=== PATIENT | female | born 1970 | race Caucasian/White ===

== ENCOUNTER 2021-09-26 20:34 | Observation (INO) ==
[2021-09-26] MEDS ORDERED: ONDANSETRON INJ 2 MG/ML 2 ML VIAL IV STA (20:39)
[2021-09-26] MEDS ORDERED: KETOROLAC TROMETHAMINE 15 MG/ML VIAL IV STA (20:39)
[2021-09-26 21:13] LABS: Basophils # (auto) 0.01 K/uL (0-0.2); Basophils % (auto) 0.1 %; Hematocrit (blood only) 36.3 % (37-47); Hemoglobin 12.5 g/dL (12.0-16.0); Immature Granulocytes # (auto) 0.01 K/uL (0.00-0.02); Immature Granulocytes % (auto) 0.1 %; Lymphocytes # (auto) 0.54 K/uL (1.2-3.4); Lymphocytes % (auto) 4.9 %; Mean Corpuscular Hemoglobin 32.5 pg (25-34); Mean Corpuscular Hgb Conc 34.4 g/dL (32-36); Mean Corpuscular Volume 94.3 fL (80-100); Mean Platelet Volume 8.9 fL (7.4-10.4); Monocytes # (auto) 0.86 K/uL (0.11-0.59); Monocytes % (auto) 7.8 %; Neutrophils # (auto) 9.57 K/uL (1.4-6.5); Neutrophils % (auto) 87.1 %; Platelet Count 275 K/uL (130-400); RDW Coefficient of Variation 12.9 % (11.5-14.5); RDW Standard Deviation 44.6 fL (36.4-46.3); Red Blood Count 3.85 M/uL (4.2-5.4); White Blood Count 10.99 K/uL (4.8-10.8)
[2021-09-26 21:35] LABS: Alanine Aminotransferase 9 U/L (7-52); Albumin Globulin Ratio 1.6 (0.9-2); Albumin Level 4.6 gm/dl (3.4-5.0); Alkaline Phosphatase 42 U/L (34-104); Anion Gap 8 (3-11); Aspartate Aminotransferase 12 U/L (13-39); BUN Creatinine Ratio 7.4 (10-20); Bilirubin,Total 0.9 mg/dl (0.2-1.0); Blood Urea Nitrogen 6 mg/dl (6-23); Calcium 9.1 mg/dl (8.5-10.1); Carbon Dioxide 23 mmol/L (21-32); Chloride 102 mmol/L (98-107); Est GFR (African American) 98.2 ml/min; Est GFR (Non-African American) 84.7 ml/min; Globulin 2.9 gm/dl (2.5-4.0); Glucose 128 mg/dl (70-99(Fasting)); Lipase 10 U/L (11-82); Potassium 3.7 mmol/L (3.5-5.1); Sodium 133 mmol/L (136-145); Total Protein 7.5 gm/dl (6.0-8.3)
[2021-09-26] MEDS ORDERED: MoRPHine SULFATE 4 MG/ML 1 ML CARP\\VIAL IV PRN ×2 (21:40→23:05)
[2021-09-26] MEDS ORDERED: SODIUM CHLORIDE 0.9% 1000ML 1,000 ML IV SCH (21:45)
--- NOTE | 2021-09-26 21:46 | Emergency Department Note ---
History of Present Illness General Chief complaint: Abdominal Pain Stated complaint: ABDOMINAL PAIN, POSSIBLE APPENDICITIS Time Seen by Provider: 09/26/21 21:29 History of Present Illness Maximum Pain Intensity: 10 This is a 51-year-old female presenting to the emergency department for ev aluation of very low abdominal pain that began 2 days ago. The patient states the discomfort began in the right lower quadrant and is now in the right lower quadrant and suprapubic area. She has had nausea without vomiting. She has been able to pass her bowels and urinate without difficulty. She reports abdominal surgery with the delivery of her last child, as well as removal of varicose veins. The patient has not had fever or chills. No chest pain, chest tightness, or shortness of breath. She rates her discomfort a 10/10. She is of an Yazidism/Mennonite denomination. Home Medications Medication Instructions Recorded Confirmed Type No Known Home Medications 09/26/21 09/26/21 History Allergies Allergy/AdvReac Type Severity Reaction Status Date / Time No Known Allergies Allergy Unverified 09/26/21 21:17 Past Med/Surg History Medical History No chronic diseases present Surgical History No significant past surgical history Social History Smoking Status: Never smoker Feels Safe at Home: Yes Review of Systems A total of 10 systems reviewed and were otherwise negative Physical Exam Vital Signs Vital Signs - 24 hr 09/26/21 20:36 09/26/21 21:35 09/26/21 22:30 Temperature 36.3 C L Temperature Source Temporal Artery Scan Pulse Rate 82 Pulse Rate [Finger] 82 75 Pulse Rhythm [Finger] Regular Respiratory Rate 18 16 Respiratory Effort / Characteristics Non-Labored Spontaneous Non-Labored Respiratory Depth Normal Normal Respiratory Pattern Regular Blood Pressure 106/63 Blood Pressure [Right Arm] 120/65 112/66 Blood Pressure Mean 77 Blood Pressure Mean [Right Arm] 83 81 Pulse Oximetry 100 95 98 Oxygen Delivery Method Room Air Room Air Sepsis Recent Fever Within 48 Hours No Sepsis New/Unexplained Change in Mental Status No Sepsis Action Taken by Nursing No Action Required 09/26/21 23:30 09/27/21 00:29 Temperature 37.1 C Temperature Source Oral Pulse Rate Pulse Rate [Finger] 73 78 Pulse Rhythm [Finger] Respiratory Rate 16 Respiratory Effort / Characteristics Respiratory Depth Respiratory Pattern Blood Pressure Blood Pressure [Right Arm] 110/66 117/72 Blood Pressure Mean Blood Pressure Mean [Right Arm] 80 87 Pulse Oximetry 99 97 Oxygen Delivery Method Room Air Room Air Sepsis Recent Fever Within 48 Hours Sepsis New/Unexplained Change in Mental Status Sepsis Action Taken by Nursing VITALS: Vitals are noted on the nurse's note and reviewed by myself. Vital signs stable. GENERAL: Well-developed, well-nourished, white female who appears moderately uncomfortable on exam. She is overall pleasant and cooperative. NECK: Supple without nuchal rigidity. No lymphadenopathy. No thyromegaly. Cervical spine is nontender. HEART: Regular rate and rhythm without murmurs gallops or rubs. LUNGS: Clear to auscultation bilaterally without wheezes, rales or rhonchi. No retractions or accessory muscle use. ABDOMEN: Positive normal bowel sounds x 4. Soft with notable tenderness in the right lower quadrant and suprapubic areas. No rebound or guarding. No CVA tenderness. MUSCULOSKELETAL: No muscle atrophy, erythema, or edema noted. Full range of motion in all extremities. Course Administered Medications Discontinued Medications Sodium Chloride (Nss 1000ml) 1,000 mls @ 999 mls/hr IV .Q1H1M SHAY Stop: 09/26/21 22:45 Last Admin: 09/26/21 23:04 Dose: 999 mls/hr Documented by: [id number] Cefoxitin Sodium (Mefoxin) 2,000 mg in 60 mls @ 100 mls/hr IV NOW STA Stop: 09/26/21 23:03 Last Infusion: 09/26/21 23:45 Dose: 0 mls/hr Documented by: [id number] Admin: 09/26/21 23:00 Dose: 100 mls/hr Documented by: [id number] Ketorolac Tromethamine (Ketorolac Tromethamine 15 Mg/Ml Vial) 10 mg IV NOW STA Stop: 09/26/21 20:40 Last Admin: 09/26/21 20:52 Dose: 10 mg Documented by: [id number] Ondansetron HCl (Ondansetron Inj 2 Mg/Ml 2 Ml Vial) 4 mg IV NOW STA Stop: 09/26/21 20:40 Last Admin: 09/26/21 20:52 Dose: 4 mg Documented by: [id number] Medical Decision Making Differential Diagnosis Differential diagnosis: Etiologies such as biliary colic, cholecystitis, hepatitis, pancreatitis, cardiac disease, pancreatitis, gastritis, peptic ulcer disease, appendicitis, c ystitis, diverticulitis, mesenteric ischemia, inflammatory bowel disease, ileus, bowel obstruction, testicular/adnexal torsion, aortic pathology, shingles, as well as others were considered Laboratory Data Result diagrams: 09/26/21 21:04 09/26/21 21:04 Lab Results 09/26/21 09/26/21 09/26/21 Range/Units 21:04 21:04 23:07 WBC 10.99 H (4.8-10.8) K/uL RBC 3.85 L (4.2-5.4) M/uL Hgb 12.5 (12.0-16.0) g/dL Hct 36.3 L (37-47) % MCV 94.3 (80-100) fL MCH 32.5 (25-34) pg MCHC 34.4 (32-36) g/dL RDW Std Deviation 44.6 (36.4-46.3) fL RDW Coeff of Ha 12.9 (11.5-14.5) % Plt Count 275 (130-400) K/uL MPV 8.9 (7.4-10.4) fL Immature Gran % (Auto) 0.1 % Neut % (Auto) 87.1 % Lymph % (Auto) 4.9 % [place] % (Auto) 7.8 % Eos % (Auto) 0.0 % Baso % (Auto) 0.1 % Neut # (Auto) 9.57 H (1.4-6.5) K/uL Lymph # (Auto) 0.54 L (1.2-3.4) K/uL [place] # (Auto) 0.86 H (0.11-0.59) K/uL Eos # (Auto) 0.00 (0-0.5) K/uL Baso # (Auto) 0.01 (0-0.2) K/uL Immature Gran # (Auto) 0.01 (0.00-0.02) K/uL Sodium 133 L (136-145) mmol/L Potassium 3.7 (3.5-5.1) mmol/L Chloride 102 (98-107) mmol/L Carbon Dioxide 23 (21-32) mmol/L Anion Gap 8 (3-11) BUN 6 (6-23) mg/dl Creatinine 0.81 (0.6-1.2) mg/dl Est Cr Clr Drug Dosing Not Reportable Est GFR ( Amer) 98.2 ml/min Est GFR (Non-Af Amer) 84.7 ml/min BUN/Creatinine Ratio 7.4 L (10-20) Glucose 128 H (70-99(Fasting)) mg/dl Calcium 9.1 (8.5-10.1) mg/dl Total Bilirubin 0.9 (0.2-1.0) mg/dl AST 12 L (13-39) U/L ALT 9 (7-52) U/L Alkaline Phosphatase 42 (34-104) U/L Total Protein 7.5 (6.0-8.3) gm/dl Albumin 4.6 (3.4-5.0) gm/dl Globulin 2.9 (2.5-4.0) gm/dl Albumin/Globulin Ratio 1.6 (0.9-2) Lipase 10 L (11-82) U/L HCG, Qual Negative (Negative) Urine Color Urine Appearance (Clear) Urine pH (4.5-7.5) Ur Specific [place] (1.000-1.030) Urine Protein (Negative) Urine Glucose (UA) (Negative) Urine Ketones (Negative) Urine Blood (Negative) Urine Nitrite (Negative) Urine Bilirubin (Negative) Urine Urobilinogen (Negative) Ur Leukocyte Esterase (Negative) Urine WBC (Auto) (0-5) /hpf Urine RBC (Auto) (0-4) /hpf U Hyaline Cast (Auto) (0-5) /lpf U Epithel Cells (Auto) (0-5) /lpf Urine Bacteria (Auto) (Negative) Urine Crystals Calcium Oxalate Crystal (None Prsent) Urine Mucus (None Prsent) SARS-CoV-2, RNA, NAAT (NEGATIVE) 09/26/21 09/26/21 Range/Units 23:07 23:07 WBC (4.8-10.8) K/uL RBC (4.2-5.4) M/uL Hgb (12.0-16.0) g/dL Hct (37-47) % MCV (80-100) fL MCH (25-34) pg MCHC (32-36) g/dL RDW Std Deviation (36.4-46.3) fL RDW Coeff of Ha (11.5-14.5) % Plt Count (130-400) K/uL MPV (7.4-10.4) fL Immature Gran % (Auto) % Neut % (Auto) % Lymph % (Auto) % [place] % (Auto) % Eos % (Auto) % Baso % (Auto) % Neut # (Auto) (1.4-6.5) K/uL Lymph # (Auto) (1.2-3.4) K/uL [place] # (Auto) (0.11-0.59) K/uL Eos # (Auto) (0-0.5) K/uL Baso # (Auto) (0-0.2) K/uL Immature Gran # (Auto) (0.00-0.02) K/uL Sodium (136-145) mmol/L Potassium (3.5-5.1) mmol/L Chloride (98-107) mmol/L Carbon Dioxide (21-32) mmol/L Anion Gap (3-11) BUN (6-23) mg/dl Creatinine (0.6-1.2) mg/dl Est Cr Clr Drug Dosing Est GFR ( Amer) ml/min Est GFR (Non-Af Amer) ml/min BUN/Creatinine Ratio (10-20) Glucose (70-99(Fasting)) mg/dl Calcium (8.5-10.1) mg/dl Total Bilirubin (0.2-1.0) mg/dl AST (13-39) U/L ALT (7-52) U/L Alkaline Phosphatase (34-104) U/L Total Protein (6.0-8.3) gm/dl Albumin (3.4-5.0) gm/dl Globulin (2.5-4.0) gm/dl Albumin/Globulin Ratio (0.9-2) Lipase (11-82) U/L HCG, Qual (Negative) Urine Color Dark Yellow Urine Appearance Clear (Clear) Urine pH 5.5 (4.5-7.5) Ur Specific [place] 1.023 (1.000-1.030) Urine Protein Trace H (Negative) Urine Glucose (UA) Negative (Negative) Urine Ketones 3+ H (Negative) Urine Blood 1+ H (Negative) Urine Nitrite Negative (Negative) Urine Bilirubin 1+ H (Negative) Urine Urobilinogen Negative (Negative) Ur Leukocyte Esterase Trace H (Negative) Urine WBC (Auto) 5-10 H (0-5) /hpf Urine RBC (Auto) 0-4 (0-4) /hpf U Hyaline Cast (Auto) 0 (0-5) /lpf U Epithel Cells (Auto) 20-30 H (0-5) /lpf Urine Bacteria (Auto) 1+ H (Negative) Urine Crystals Not Reportable Calcium Oxalate Crystal Present A (None Prsent) Urine Mucus Present A (None Prsent) SARS-CoV-2, RNA, NAAT NEGATIVE (NEGATIVE) Imaging Data Radiologist's Impression: Preliminary Findings Only See Final Report For Complete Findings CT ABDOMEN & PELVIS Without Contrast: Lack of contrast limits evaluation. There is an appendicolith within the mid appendiceal lumen. Distal to this the appendix is mildly distended measuring up to 1.1 cm with periappendiceal fat stranding suggestive of acute appendicitis. No grossly evident perforation. No abscess. Perienteric fat stranding which may be reactive to the appendicitis or represent a component of enteritis. Hepatomegaly. Radiologist:Ramy Dyer MD [facility] Narrative Physical exam and history were performed. Nursing notes, EMR, and Medication List were personally reviewed. Patient appears to have low abdominal pain primarily on the right side for about the past 48 hours. She is uncomfortable on palpation. IV access was established and labs were obtained. She was hydrated with normal saline. The patient has been given IV Toradol and IV Zofran per nursing protocols. She was given IV morphine and sent to CT scan for evaluation of her symptoms. The patient's blood work is as above and was reviewed. She does not have a significantly elevated white blood cell count, gross anemia, bandemia, or significant electrolyte imbalance. COVID is negative. Urine culture is pending. CT scan was reviewed by myself and radiology and is consistent with acute appendicitis. This is consistent with her symptoms. Case was discussed with the on-call surgical team, who did evaluate the patient here in the ER. She was given IV Mefoxin. Please see the surgical team dictation for further patient course, plan, and disposition. The chart was completed utilizing [employer] Speech Voice Recognition Software. Grammatical errors, random word insertions, pronoun errors, and incomplete sentences are an occasional consequence of this system due to software limitations, ambient noise, and hardware issues. Any formal questions or concerns about the content, text, or information contained within the body of this dictation should be directly addressed to the provider for clarification. . Impression & Plan Acute appendicitis, Abdominal pain, RLQ Discharge Plan Visit Data Chief Complaint: Abdominal Pain Stated Complaint: ABDOMINAL PAIN, POSSIBLE APPENDICITIS ED Provider: [facility] ED Midlevel Provider: Dutch Brunson Discharge Problem: Acute appendicitis, Abdominal pain, RLQ Forms Stand Alone Forms: GOSO Prescriptions Prescriptions: No Action No Known Home Medications RF: 0 Referrals Referrals: PCP,NO [Primary Care Provider] -
[2021-09-26] MEDS ORDERED: cefOXitin 2,000 MG/60 ML BAG IV STA (22:28)
--- NOTE | 2021-09-26 23:02 | History & Physical Report ---
Date of Service September 26, 2021 Assessment & Plan (1) Acute appendicitis: Plan: Due to the patient's clinical presentation and imaging she will be admitted to the hospital proceeding as follows: We will keep the patient n.p.o. Analgesics will be provided Antiemetics will be provided We will provide hydration with IV fluids Antibiotics will be administered. The treating clinician in the emergency department has ordered cefoxitin we will continue this medication We will await results of patient's test We will await results of patient's COVID test We will plan on performing an appendectomy on 09/27/2021. I have consented the patient for a laparoscopic, possible open appendectomy. I have outlined the risks of the procedure which include but are not limited to bleeding, infection, injury to bowel or other anatomical structures, or need for additional surgery. I have outlined the benefits of the procedure which include improvement of patient's pain and prevent of appendiceal rupture I have outlined the alternatives which include antibiotics and observation. I have outlined the risks of not performing the surgery which include appendiceal rupture. Patient expressed her understanding and wishes to proceed. Additional recommendation was made based on her postoperative course as it unfolds and her operative findings SCDs will be used for DVT prevention, no chemical means due to planned surgery She will be a level 1 full code History of Present Illness Chief Complaint: Abdominal pain Primary Care Provider: NO PCP This is a 51-year-old female who presented to [facility] emergency department secondary to abdominal pain. She notes that the pain in itially began about 2-1/2 to 3 days ago. She notes that the pain would come and go but over the past 12 to 24 hours the pain has become more severe and persistent. She denies any fevers, shakes, chills. She does note nausea vomiting. She notes that the pain is worse with certain movements and has been palliated by medicines that were administered in the emergency department. She does report having additional abdominal surgeriesshe has had a , and she notes that during the surgery she lost more blood than expected due to varicosities in her abdomen. She notes that her most recent oral intake was at approximately noon on 09/26/2021 and was only liquids to drink and she has not eaten any solid food today. In the emergency department patient had labs and imaging which I independently reviewed. She did undergo a CT scan of the abdomen and pelvis that showed that she had a dilated appendix measuring approximately 1.1 cm with periappendiceal fat stranding. She was also noted to have an appendicolith in the appendiceal lumen. These findings were concerning for an acute appendicitis. There is no evidence of perforation or abscess on the study. Labs include a CBC her white blood cell count had a slight elevation at 10.9. Hemoglobin was 12.5 with a hematocrit of 36.3. Platelet count is noted to be within normal range. Chemistry profile showed sodium was 133. Potassium was 3.7. BUN and creatinine were both within the normal range. There is no significant elevation of LFTs or lipase. A COVID test has been ordered and is pending. A test has been ordered and is pending as well. Patient notes that when she is feeling well she leads a very active lifestyle performing strenuous yard work throughout each day. She notes that with her activities of daily living and daily work routine she does not get chest pain or shortness of breath. She reports that she is a non-smoker and nondrinker. At the time of my interview the patient was resting comfortably bed she was in no distress. Allergies Allergy/AdvReac Type Severity Reaction Status Date / Time No Known Allergies Allergy Unverified 09/26/21 21:17 Home Medications Medication Instructions Recorded Confirmed Type No Known Home Medications 09/26/21 09/26/21 History Past Med/Surg History Medical History No chronic diseases present Surgical History No significant past surgical history Social History Smoking Status: Never smoker Second Hand Exposure: No; Do You Dip or Chew Tobacco: No; Tobacco Cessation Education Requested by Patient: No Hx Alcohol Use: No Hx Substance Use: No Preferred Language: Mohawk Communication Ability: Effective System Safety Manager Required: No Beliefs That Will Affect Care: Cultural Cultural Beliefs: [facility] Current Living Situation: Family Other Information That Helps Us Care for You: No Feels Safe at Home: Yes Safety Concerns: Feels Safe At This Time Assistive Devices: Denture - Upper, Denture - Lower and Glasses Medical History No chronic diseases present Surgical History No significant past surgical history Social History Smoking Status: Never smoker Second Hand Exposure: No; Do You Dip or Chew Tobacco: No; Tobacco Cessation Education Requested by Patient: No Hx Alcohol Use: No Hx Substance Use: No Preferred Language: Mohawk Communication Ability: Effective System Safety Manager Required: No Beliefs That Will Affect Care: Cultural Cultural Beliefs: [facility] Current Living Situation: Family Other Information That Helps Us Care for You: No Feels Safe at Home: Yes Safety Concerns: Feels Safe At This Time Assistive Devices: Denture - Upper, Denture - Lower and Glasses Review of Systems Constitutional: no fever Eyes: no diplopia Ear, Nose, Mouth, Throat: no ear pain Respiratory: no cough and no dyspnea Cardiovascular: no chest pain Gastrointestinal: + abdominal pain, + nausea and + vomiting Genitourinary: no dysuria Musculoskeletal: no back pain Integumentary: no rash Neurologic: no localized weakness Physical Exam Constitutional: well developed and well nourished; no acute distress Eyes: no conjunctival abnormality ENMT: Ears: no hearing impairment and no external ear abnormality Mouth: no oropharynx abnormality Neck: trachea midline Respiratory: normal respiratory effort, lungs clear to auscultation Cardiovascular: Rate/Rhythm: regular rate and regular rhythm Gastrointestinal (Abdomen): Abdomen is soft and nondistended. Patient had marked tenderness over McBurney's point in the right lower quadrant of the abdomen. Musculoskeletal: No calf tenderness Skin: no rashes Neurologic: moves all extremities Psychiatric: A+Ox3, euthymic affect Results & Data Results & Data ([facility]) Vital Signs (Past 12 Hours) Vital Signs Temp Pulse Pulse Resp BP BP Pulse Ox 09/26/21 21:35 82 16 120/65 95 09/26/21 20:36 36.3 C L 82 18 106/63 100 Supervising Physician Co-Signing Physician Notes pnt s&e, labs and imaging reviewed, agree with above. 51 y/o female with acute appendicitis. Admitted overnight and placed on abx. afvss, nad, aaox3, abd ttp in rlq. wbc mildly elevated, CT personally reviwed and c/w acute appendicitis. Plan for laparoscopic appendectomy. The risk the procedure were discussed to include but not limited to bleeding, infection, conversion open, damage surrounding structures, normal appendix, need for future more extensive surgeries, and the risk of anesthesia PG Care Time/CCT Total # of Minutes Spent Total Time Spent with Patient: Total time spent is greater than 50% in coordination of care (as documented) at patient's floor/unit and/or counseling patient: Coding Level of Care Code INT OBSERVATION CARE 70M LVL 3 Diagnoses Acute appendicitis K35.80
[2021-09-26] MEDS ORDERED: ACETAMINOPHEN 1,000 MG/100 ML VIAL IV PRN (23:05)
[2021-09-26] MEDS ORDERED: ONDANSETRON INJ 2 MG/ML 2 ML VIAL IV PRN (23:05)
[2021-09-26 23:21] LABS: Appearance Urine Clear (Clear); Blood Urine 1+ (Negative); Color Urine Dark Yellow; Epithelial Cell Urine Auto 20-30 /lpf (0-5); Glucose Urine UA Negative (Negative); Ketones Urine 3+ (Negative); Leukocyte Esterase Urine Trace (Negative); Nitrite Urine Negative (Negative); Protein Urine Trace (Negative); Specific Gravity Urine 1.023 (1.000-1.030); Urobilinogen Urine Negative (Negative); pH Urine 5.5 (4.5-7.5)
[2021-09-26 23:25] LABS: Bilirubin Urine 1+ (Negative)
[2021-09-26 23:52] LABS: Calcium Oxalate Crystals Urine Present (None Prsent); Cast Urine Automated 0 /lpf (0-5); Mucus Urine Present (None Prsent)
[2021-09-26 23:54] LABS: Bacteria Urine Automated 1+ (Negative); RBC Urine Automated 0-4 /hpf (0-4)
[2021-09-27 00:03] LABS: Pregnancy Test, Serum Negative (Negative)
[2021-09-27] MEDS ORDERED: PATIENT'S HEIGHT AND/OR WEIGHT NEEDED SCH (01:15)
[2021-09-27] MEDS: LACTATED RINGER'S 1,000 ML IV SCH ×2 (01:43→11:13)
[2021-09-27] MEDS: cefOXitin 2,000 MG in DEXTROSE 5% 50 ML IV SCH ×3 (05:15→17:14)
--- NOTE | 2021-09-27 07:53 | CT Scan Report ---
CT OF THE ABDOMEN AND PELVIS WITHOUT CONTRAST CLINICAL HISTORY: Right lower quadrant abdominal pain. COMPARISON STUDY: No previous studies for comparison. TECHNIQUE: Axial images of the abdomen and pelvis were obtained without IV contrast. Images were revi ewed in the axial, sagittal, and coronal planes. Automated exposure control was utilized for the lizbeth dy. A dose lowering technique was utilized adhering to the principles of ALARA. FINDINGS: Lung bases are unremarkable. Multiple right renal calculi measure up to 5 mm. There are sev eral small left renal calculi. There are no ureteral calculi and there is no hydronephrosis. Evaluati on of the remainder of the abdomen and pelvis is suboptimal on this unenhanced exam. Liver, spleen, a drenal glands and pancreas are unremarkable. There is no evidence for a bowel obstruction. There is a 6 mm appendicolith within the appendix. The appendix is dilated, measuring 1.3 cm in caliber. There is periappendiceal stranding. No free air or abscess is identified on this unenhanced exam. Trace flu id within the pelvis is noted. There is no evidence for a bowel obstruction. No acute fracture or cinthya picious lesion is identified within the visualized skeletal structures. Pelvic calcifications favor p hleboliths. IMPRESSION: 1. Findings consistent with acute appendicitis. Periappendiceal stranding and fluid. No free air or a bscess. 2. Bilateral nephrolithiasis. No ureteral calculi or hydronephrosis. ACT 112: Negative or not required by law. Electronically signed by: Kushal Posada M.D. 09/27/2021 7:52 AM
--- NOTE | 2021-09-27 08:32 | Surgery Progress Note ---
Date of Service September 27, 2021 Assessment & Plan (1) Acute appendicitis: Plan: 51 y/o female with acute appendicitis. Plan for laparoscopic appendectomy The risk the procedure were discussed to include but not limited to bleeding, infection, conversion open, damage surrounding structures, normal appendix, need for future more extensive surgeries, and the risk of anesthesia Admission and Anticipated Discharge Date Admission Date: September 26, 2021 Subjective 51 y/o female admitted with acute appendicitis. Pain controlled with meds but still present. Physical Exam Constitutional: WD/WN, vitals as above Respiratory: normal respiratory effort, lungs clear to auscultation Cardiovascular: RRR, no murmur, no edema Gastrointestinal (Abdomen): Percussion/Palpation: + abdomen tender (rlq), abdomen soft and + hernia (umbilical); no guarding and abdomen not rigid Results & Data ([facility]) Vital Signs (Past 12 Hours) Vital Signs Temp Pulse Pulse Resp BP BP Pulse Ox 09/27/21 07:16 37.2 C 82 16 92/51 L 95 09/27/21 00:56 16 84 L 09/27/21 00:50 37.8 C H 88 16 125/72 98 09/27/21 00:29 37.1 C 78 16 117/72 97 09/26/21 23:30 73 110/66 99 09/26/21 22:30 75 112/66 98 09/26/21 21:35 82 16 120/65 95 09/26/21 20:36 36.3 C L 82 18 106/63 100 Laboratory Results Laboratory Results - last 24 hr 09/26/21 09/26/21 09/26/21 21:04 21:04 23:07 WBC 10.99 H RBC 3.85 L Hgb 12.5 Hct 36.3 L MCV 94.3 MCH 32.5 MCHC 34.4 RDW Std Deviation 44.6 RDW Coeff of Ha 12.9 Plt Count 275 MPV 8.9 Immature Gran % (Auto) 0.1 Neut % (Auto) 87.1 Lymph % (Auto) 4.9 Maries % (Auto) 7.8 Eos % (Auto) 0.0 Baso % (Auto) 0.1 Neut # (Auto) 9.57 H Lymph # (Auto) 0.54 L Maries # (Auto) 0.86 H Eos # (Auto) 0.00 Baso # (Auto) 0.01 Immature Gran # (Auto) 0.01 Sodium 133 L Potassium 3.7 Chloride 102 Carbon Dioxide 23 Anion Gap 8 BUN 6 Creatinine 0.81 Est Cr Clr Drug Dosing Not Reportable Est GFR ( Amer) 98.2 Est GFR (Non-Af Amer) 84.7 BUN/Creatinine Ratio 7.4 L Glucose 128 H Calcium 9.1 Total Bilirubin 0.9 AST 12 L ALT 9 Alkaline Phosphatase 42 Total Protein 7.5 Albumin 4.6 Globulin 2.9 Albumin/Globulin Ratio 1.6 Lipase 10 L HCG, Qual Negative Urine Color Urine Appearance Urine pH Ur Specific [place] Urine Protein Urine Glucose (UA) Urine Ketones Urine Blood Urine Nitrite Urine Bilirubin Urine Urobilinogen Ur Leukocyte Esterase Urine WBC (Auto) Urine RBC (Auto) U Hyaline Cast (Auto) U Epithel Cells (Auto) Urine Bacteria (Auto) Urine Crystals Calcium Oxalate Crystal Urine Mucus SARS-CoV-2, RNA, NAAT 09/26/21 09/26/21 23:07 23:07 WBC RBC Hgb Hct MCV MCH MCHC RDW Std Deviation RDW Coeff of Ha Plt Count MPV Immature Gran % (Auto) Neut % (Auto) Lymph % (Auto) Maries % (Auto) Eos % (Auto) Baso % (Auto) Neut # (Auto) Lymph # (Auto) Maries # (Auto) Eos # (Auto) Baso # (Auto) Immature Gran # (Auto) Sodium Potassium Chloride Carbon Dioxide Anion Gap BUN Creatinine Est Cr Clr Drug Dosing Est GFR ( Amer) Est GFR (Non-Af Amer) BUN/Creatinine Ratio Glucose Calcium Total Bilirubin AST ALT Alkaline Phosphatase Total Protein Albumin Globulin Albumin/Globulin Ratio Lipase HCG, Qual Urine Color Dark Yellow Urine Appearance Clear Urine pH 5.5 Ur Specific [place] 1.023 Urine Protein Trace H Urine Glucose (UA) Negative Urine Ketones 3+ H Urine Blood 1+ H Urine Nitrite Negative Urine Bilirubin 1+ H Urine Urobilinogen Negative Ur Leukocyte Esterase Trace H Urine WBC (Auto) 5-10 H Urine RBC (Auto) 0-4 U Hyaline Cast (Auto) 0 U Epithel Cells (Auto) 20-30 H Urine Bacteria (Auto) 1+ H Urine Crystals Not Reportable Calcium Oxalate Crystal Present A Urine Mucus Present A SARS-CoV-2, RNA, NAAT NEGATIVE Diagnostic Findings CT OF THE ABDOMEN AND PELVIS WITHOUT CONTRAST CLINICAL HISTORY: Right lower quadrant abdominal pain. COMPARISON STUDY: No previous studies for comparison. TECHNIQUE: Axial images of the abdomen and pelvis were obtained without IV cont rast. Images were reviewed in the axial, sagittal, and coronal planes. Automated exposure control was utilized for the study. A dose lowering technique was utilized adhering to the principles of ALARA. FINDINGS: Lung bases are unremarkable. Multiple right renal calculi measure up to 5 mm. There are several small left renal calculi. There are no ureteral calculi and there is no hydronephrosis. Evaluation of the remainder of the abdomen and pelvis is suboptimal on this unenhanced exam. Liver, spleen, adrenal glands and pancreas are unremarkable. There is no evidence for a bowel obstruction. There is a 6 mm appendicolith within the appendix. The appendix is dilated, measuring 1.3 cm in caliber. There is periappendiceal stranding. No free air or abscess is identified on this unenhanced exam. Trace fluid within the pelvis is noted. There is no evidence for a bowel obstruction. No acute fracture or suspicious lesion is identified within the visualized skeletal structures. Pelvic calcifications favor phleboliths. IMPRESSION: 1. Findings consistent with acute appendicitis. Periappendiceal stranding and fluid. No free air or abscess. 2. Bilateral nephrolithiasis. No ureteral calculi or hydronephrosis. PG Care Time/CCT Total # of Minutes Spent Total Time Spent with Patient: Total time spent is greater than 50% in coordination of care (as documented) at patient's floor/unit and/or counseling patient: Coding Level of Care Code 72664 Subseq Obs Care Lvl 1 Diagnoses Acute appendicitis K35.80
[2021-09-27] MEDS ORDERED: PROPOFOL IV EMULSION 10 MG/ML 20 ML VIAL IV ONE (13:55)
[2021-09-27] MEDS ORDERED: NEOSTIGMINE METHYLSULFATE 1 MG/ML 10ML VIAL ONE (13:55)
[2021-09-27] MEDS ORDERED: LARYING-O-JET KIT (LTA) ONE (13:55)
[2021-09-27] MEDS ORDERED: DEXAMETHASONE SOD INJ 4 MG/ML VIAL ONE (13:55)
[2021-09-27] MEDS ORDERED: KETOROLAC 30 MG/ML VIAL ONE (13:55)
[2021-09-27] MEDS ORDERED: ROCURONIUM BROMIDE 10 MG/ML 5 ML VIAL IV ONE (13:55)
[2021-09-27] MEDS ORDERED: fentaNYL citrate 100 MCG/2 ML VIAL ONE (13:55)
[2021-09-27] MEDS ORDERED: ONDANSETRON INJ 2 MG/ML 2 ML VIAL ONE (13:55)
[2021-09-27] MEDS ORDERED: MIDAZOLAM HCL 1 MG/ML 2ML VIAL ONE (13:55)
[2021-09-27] MEDS ORDERED: LIDOCAINE 2% 2 ML VIAL/AMP(20MG/ML) INFIL ONE (13:55)
[2021-09-27] MEDS ORDERED: GLYCOPYRROLATE 0.2 MG/ML VIAL ONE (13:55)
[2021-09-27] MEDS ORDERED: BUPIVACAINE 0.5 % 5 MG/1 ML MPF 30ML VIAL ONE (14:22)
--- NOTE | 2021-09-27 14:28 | Anesthesiology Consultation ---
Date of Service September 27, 2021 Assessment & Plan (1) Encounter for pre-operative examination: Chart Review Chart Review: Acceptable Risk for Surgery History Surgery Operation Date: 09/27/21 10:40 Proposed Procedures p Laparoscopic Appendectomy Possible Open - Jorge Ring DO, MARILUZ Height/Weight Height: 5 ft 2 in Weight: 70.9 kg Allergies Allergy/AdvReac Type Severity Reaction Status Date / Time No Known Allergies Allergy Unverified 09/26/21 21:17 Medications Home Medications Medication Instructions Recorded Confirmed Last Taken No Known Home Medications 09/26/21 09/26/21 Unknown Active Medications Generic Name Dose Route Start Last Admin Trade Name Freq PRN Reason Stop Dose Admin Lactated Ringer's 1,000 mls @ 100 mls/hr 09/26/21 23:15 09/27/21 11:13 Lr IV 10/26/21 23:14 100 mls/hr .Q10H SHAY Administration Cefoxitin Sodium 2,000 mg/ 60 mls @ 100 mls/hr 09/27/21 05:00 09/27/21 11:54 Dextrose IV 10/07/21 04:59 Infused Q6H SHAY Infusion NPO Date Last Intake of Fluids: 09/26/21 Time Last Intake of Fluids: 23:59 Date Last Intake of Solids: 09/26/21 Time Last Intake of Solids: 23:59 Past Medical History Medical History No chronic diseases present Past Surgical History Surgical History No significant past surgical history Social History Smoking Status: Never smoker Do You Dip or Chew Tobacco: No Hx Alcohol Use: No Hx Substance Use: No Physical Exam Vital Signs Last Vital Signs Temp 37.2 C 09/27/21 07:16 Pulse 82 09/27/21 07:16 Resp 16 09/27/21 07:16 BP 92/51 L 09/27/21 07:16 Pulse Ox 95 09/27/21 07:16 Testing Laboratory Results 09/26/21 21:04 09/26/21 21:04 Urine Color Dark Yellow 09/26/21 23:07 Urine Appearance Clear (Clear) 09/26/21 23:07 Urine pH 5.5 (4.5-7.5) 09/26/21 23:07 Ur Specific [place] 1.023 (1.000-1.030) 09/26/21 23:07 Urine Protein Trace (Negative) H 09/26/21 23:07 Urine Glucose (UA) Negative (Negative) 09/26/21 23:07 Urine Ketones 3+ (Negative) H 09/26/21 23:07 Urine Nitrite Negative (Negative) 09/26/21 23:07 Ur Leukocyte Esterase Trace (Negative) H 09/26/21 23:07 Urine WBC (Auto) 5-10 /hpf (0-5) H 09/26/21 23:07 Urine RBC (Auto) 0-4 /hpf (0-4) 09/26/21 23:07 U Hyaline Cast (Auto) 0 /lpf (0-5) 09/26/21 23:07 U Epithel Cells (Auto) 20-30 /lpf (0-5) H 09/26/21 23:07 Urine Bacteria (Auto) 1+ (Negative) H 09/26/21 23:07
[2021-09-27] MEDS ORDERED: fentaNYL citrate 100 MCG/2 ML VIAL IV PRN (14:59)
[2021-09-27] MEDS ORDERED: KETOROLAC 30 MG/ML VIAL IV PRN (14:59)
[2021-09-27] MEDS ORDERED: ATROPINE SULFATE 0.1 MG/ML 10ML SYR IV PRN (14:59)
[2021-09-27] MEDS ORDERED: ONDANSETRON INJ 2 MG/ML 2 ML VIAL IV PRN (14:59)
[2021-09-27] MEDS ORDERED: PROMETHAZINE HCL 12.5 MG in SODIUM CHLORIDE 0.9% 50 ML IV PRN (14:59)
[2021-09-27] MEDS ORDERED: PHENYLEPHRINE 100MCG/ML 5ML SYR ONE (15:34)
[2021-09-27] MEDS ORDERED: ePHEDrine sulfate 50 MG/ML SYR ONE (15:34)
--- NOTE | 2021-09-27 15:53 | Operative Report ---
PG Post Operative Report Pre & Post Diagnosis Operation Date: 09/27/21 10:40 Pre-Op Diagnosis: Acute appendicitis Post-Op Diagnosis: Acute appendicitis I identified the patient and participated in the time-out.: Yes Procedure Operation Date: 09/27/21 10:40 Actual Procedures p Laparoscopic Appendectomy(Not Applicable) - Jorge Ring DO, FACS Surgeon Jorge Ring DO, FACS Printing Press Machine Operator Vijay Hernandez Estimated Blood Loss 5 Findings Consistent with Post-Op Diagnosis Acute, suppurative appendicitis. No evidence of perforation. Good hemostasis. Specimens Appendix Anesthesia Type General Complications none Disposition Accompanied Patient To Recovery: No Disposition: Recovery Room Indications 51-year-old female presented to the emergency department overnight with signs symptoms of appendicitis confirmed by CT scan. Plan for laparoscopic appendectomy. The risks of the procedure were discussed, all questions were answered, and the patient agreed to proceed with surgery as planned. Description of Procedure The patient was properly identified, consented, and taken to the operating room where she was placed in the supine position. General endotracheal anesthesia was induced. SCDs and a safety belt were placed. Preoperative antibiotics were administered. A Finch catheter was not placed as the patient voided prior to going to the operating room The patient's abdomen was prepped and draped in the standard sterile fashion. Surgical timeout was performed and all parties were in agreement that this was the correct patient and procedure to be performed and we continued as planned. An incision was made to the left of the umbilicus and the Veress needle was inserted. Saline drop test confirmed entry into the abdomen. The abdomen was insufflated with carbon dioxide to the patient tolerated without incident. The abdomen was then entered with a 5 mm port utilizing the Optiview technique. The camera was reinserted and no damage from initial trocar placement or Veress needle placement was noted. There was some irritation of the small bowel peritoneum in the right lower quadrant with some turbid fluid in the pelvis. No other abnormalities were noted. A 12 mm port was placed in the left lower quadrant with care not to damage the epigastric vessels and a 5 mm port was placed in the suprapubic midline with care not to damage the bladder. The patient was placed in Trendelenburg position and rotated towards the left. The small bowel was swept away from the right lower quadrant. The cecum was grasped with an atraumatic grasper exposing the appendix. The appendix was moderately inflamed with some fibrinous exudate but there was no evidence of perforation. There was turbid fluid in the pelvis which was suctioned A window was created between the base of the appendix and the mesoappendix. A cunnignham loaded endoscopic stapler was then used to divide the appendix at its base. The Sonicision was then used to divide the mesoappendix. Hemostasis was good. The appendix was placed in an Endo Catch bag and removed through the left lower quadrant port site. The right lower quadrant and pelvis was irrigated and hemostasis was found to be good. The fascia of the left lower quadrant port was closed with an 0 Vicryl suture utilizing the Sam-Sheryl device. 5 mm trochars were removed and the abdomen was allowed to collapse. The wound was irrigated, and the skin of all ports was closed with 4-0 Monocryl subcuticular sutures. Dermabond was placed over the wounds. The patient was extubated in the operating room and taken to the PACU where she recovered without apparent incident. All sponge, instrument and needle counts were correct at the conclusion of the procedure. The patient tolerated the procedure well. The physician's spa assistant manager was present and scrubbed for the entire the case. He was critical in positioning the patient, prepping and draping, retraction and exposure, driving the laparoscope, closure the incisions, and placement of the dressings. I attest to the content of the Intraoperative Record and any orders documented therein. Any exceptions are noted below.
--- NOTE | 2021-09-27 16:33 | Anesthesiology Progress Note ---
Date of Service September 27, 2021 Anesthesia Post Procedure Vital Signs Vital Signs: Temp Pulse Pulse Pulse Resp BP BP 09/27/21 16:25 69 14 106/58 L 09/27/21 16:15 62 15 112/50 L 09/27/21 16:05 61 14 103/56 L 09/27/21 15:58 36.6 C 65 16 102/56 L 09/27/21 14:20 37.3 C 78 18 103/56 L 09/27/21 07:16 37.2 C 82 16 92/51 L 09/27/21 00:56 16 09/27/21 00:50 37.8 C H 88 16 125/72 09/27/21 00:29 37.1 C 78 16 117/72 09/26/21 23:30 73 110/66 09/26/21 22:30 75 112/66 09/26/21 21:35 82 16 120/65 09/26/21 20:36 36.3 C L 82 18 106/63 Pulse Ox 09/27/21 16:25 98 09/27/21 16:15 100 09/27/21 16:05 100 09/27/21 15:58 100 09/27/21 14:20 97 09/27/21 07:16 95 09/27/21 00:56 84 L 09/27/21 00:50 98 09/27/21 00:29 97 09/26/21 23:30 99 09/26/21 22:30 98 09/26/21 21:35 95 09/26/21 20:36 100 Pain Intensity Right Lower Abdomen: Pain Intensity: 7 Transfer of Care Handoff Completed per policy Notes Mental Status: alert / awake / arousable Patient Amnestic to Procedure: Yes Nausea / Vomiting: adequately controlled Pain: adequately controlled Airway Patency, RR, SpO2: stable & adequate BP & HR: stable & adequate Hydration State: stable & adequate Anesthetic Complications: no major complications apparent
[2021-09-27] MEDS ORDERED: oxyCODONE/ACETAMINOPHEN 5mg/325mg TAB PO PRN ×2 (16:43)
--- NOTE | 2021-09-28 09:35 | Discharge Summary ---
Date of Service September 28, 2021 Admission HPI Per Admitting Provider This is a 51-year-old female who presented to [facility] emergency department secondary to abdominal pain. She notes that the pain initially began about 2-1/2 to 3 days ago. She notes that the pain would come and go but over the past 12 to 24 hours the pain has become more severe and persistent. She denies any fevers, shakes, chills. She does note nausea vomiting. She notes that the pain is worse with certain movements and has been palliated by medicines that were administered in the emergency department. She does report having additional abdominal surgeriesshe has had a , and she notes that during the surgery she lost more blood than expected due to varicosities in her abdomen. She notes that her most recent oral intake was at approximately noon on 09/26/2021 and was only liquids to drink and she has not eaten any solid food today. In the emergency department patient had labs and imaging which I independently reviewed. She did undergo a CT scan of the abdomen and pelvis that showed that she had a dilated appendix measuring approximately 1.1 cm with periappendiceal fat stranding. She was also noted to have an appendicolith in the appendiceal lumen. These findings were concerning for an acute appendicitis. There is no evidence of perforation or abscess on the study. Labs include a CBC her white blood cell count had a slight elevation at 10.9. Hemoglobin was 12.5 with a hematocrit of 36.3. Platelet count is noted to be within normal range. Chemistry profile showed sodium was 133. Potassium was 3.7. BUN and creatinine were both within the normal range. There is no significant elevation of LFTs or lipase. A COVID test has been ordered and is pending. A test has been ordered and is pending as well. Patient notes that when she is feeling well she leads a very active lifestyle performing strenuous yard work throughout each day. She notes that with her activities of daily living and daily work routine she does not get chest pain or shortness of breath. She reports that she is a non-smoker and nondrinker. At the time of my interview the patient was resting comfortably bed she was in no distress. Principal Diagnosis acute appendicitis Discharge Data Allergies Allergy/AdvReac Type Severity Reaction Status Date / Time No Known Allergies Allergy Unverified 09/26/21 21:17 Consultations 01/18/22 22:35 Consult General Surgery Stat Procedures Performed Operation Date: 09/27/21 10:40 Actual Procedures p Laparoscopic Appendectomy(Not Applicable) - Jorge Ring DO, FACS Ordered Studies 09/26/21 21:40 CT abd pelvis wo con Urgent Hospital Course (1) Acute appendicitis: 51 y/o female presented to ED with signs and symptoms of appendicitis, confirmed on CT scan. She was admitted to the hospital with plan for surgery the next day. She underwent uncomplicated laparoscopic appendectomy on 27 Sep 2021. She returned to the floor and her pain was improved and well controlled, she tolerated a regular diet, was ambulating, and voiding. She was discharged to home with plans for follow up in the general surgery clinic in 2 weeks. Activity restriction, wound care instructions, and return precautions were reviewed. (2) S/P laparoscopic appendectomy: Total Time Total Time Spent Total Time Spent (In Minutes): 45 Total Time Includes: Examination of the Patient, Discharge Planning and Medication Reconciliation Discharge Plan Discharge Items Patient Disposition: Home - Self-Care Reason For Visit: APPY Discharge Diagnosis: appendicitis Activity: Per Instructions section Lifting: No more than 10 pounds Bathing Comment: may shower starting 09/28/21; no soaking in tubs/pools Exercise/Sports: Wait until after follow-up appointment Driving/Machine Use: no driving while taking narcotics for pain Non-emergency contact: Surgeon Call non-emergency contact if: you have any medication questions, your pain is concerning for you, you have a fever, your temperature is above 101.5, your wound has increased redness, your wound has increased drainage and your wound pain has increased Follow-up/Referrals: Jorge Ring DO, FACS [Physician] - (Please call to schedule follow up in clinic within 2 weeks) PCP,NO [Primary Care Provider] - Diet: Regular Addtl Attending Provider Instructions: You have been prescribed a narcotic called Percocet to take if needed for post operative pain. If your pain does not require a narcotic you may purchase Tylenol and/or Ibuprofen over the counter if needed for pain. Do not take Tylenol and Percocet concurrently as they both contain Acetaminophen and you should not exceed >3grams of Acetaminophen within a 24 hour time period. Pending Studies at Discharge: Yes Studies:: surgical pathology Stand-Alone Forms: [employer], Smoking Cessation Medications and DC Order Prescriptions: New oxycodone-acetaminophen [Percocet] 5-325 mg tablet 1 - 2 tab PO .q4-6h PRN (Reason: pain, for initial therapy, max 6 tabs per day) Qty: 12 RF: 0 Discharge Orders: Discharge Order (Routine); Ordered 09/27/21 Ordered By: Chrissy Callahan/Other Patient Handouts: Appendectomy, What Is Appendicitis? Admission Data Admit Date/Time: 09/26/21 23:05 Attending Provider: Jorge Ring Admit Provider: Jorge Ring Primary Care Provider: PCP,NO Other Providers: Jorge Ring Other Interventions: Discharge Summary Assessment (RN) Last Done: 09/27/21 17:52 Coding Level of Care Code D/C DAY MANAGEMENT >30 MINS Diagnoses Acute appendicitis K35.80 S/P laparoscopic appendectomy Z90.49
== END 2021-09-27 18:45 | disposition home or self-care (01) ==
LOC: ED 20:34 → 3N 20:34